=== PATIENT | female | born 1960 | race Caucasian/White ===

== ENCOUNTER 2025-06-09 12:58 | Outpatient (CLI) | payer BC, SELFPAY ==
--- NOTE | 2025-06-09 13:00 | MR_ITS ---
FINAL REPORT CLINICAL HISTORY: suddent onset non-traumatic right foot drop. right leg weakness. left leg numbness. COMPARISON: None FINDINGS: Multiplanar MR imaging of the lumbar spine was performed without contrast. On the sagittal T2-weighted images, there is abnormal decreased signal throughout the lumbar discs. The vertebrae are of normal height. There is grade 1 spondylolisthesis of L4 on L5. Advanced disc space narrowing is noted at L5-S1. T12-L1: There is no significant canal stenosis or neural foraminal narrowing. L1-2: Mild left posterolateral disc protrusion. Mild left neural foraminal narrowing. L2-3: Mild diffuse disc bulge. Mild facet hypertrophy. Mild bilateral neural foraminal narrowing. L3-4: Mild disc bulge. Mild bilateral neural foraminal narrowing. L4-5: Moderate diffuse disc bulge. Bilateral facet hypertrophy. [id number] spinal canal compromise and bilateral neural foraminal narrowing. L5-S1: Diffuse disc bulge. Endplate hypertrophy eccentric to the left. Moderate left and mild right neural foraminal narrowing. IMPRESSION: Spondylolisthesis of L4 on L5 with mild to moderate spinal canal compromise and bilateral neural foraminal narrowing. Moderate neural foraminal narrowing on the left at L5-S1. Reviewed, Interpreted and Dictated by Joshua Bell MD Transcribed by Sandra Boggs Authenticated and [facility]
== END 2025-06-09 23:59 | disposition home or self-care (01) ==
LOC: RAD 12:59
PROVIDERS: PCP Family Medicine; Visit Provider Family Medicine
DX: M43.16 Spondylolisthesis, lumbar region (principal); M48.061 Spinal stenosis, lumbar region without neurogenic claudication; M99.73 Connective tissue and disc stenosis of intervertebral foramina of lumbar region; M21.371 Foot drop, right foot
CPT/HCPCS: 72148